=== PATIENT | female | born 1945 | race Caucasian/White ===

== ENCOUNTER → 2020-11-30 | Outpatient (CLI) | payer MEDICARE ==
[2020-11-30 10:07] LABS: HCT 43.3 % (34.0-46.0); MCH 31.8 pg (25.0-35.0); MCHC 32.4 g/dL (31.0-37.0); MCV 98.2 fL (80.0-100.0); Mean Platelet Volume 7.2; Platelet Count 372 k/uL (150-450); RBC 4.42 m/uL (3.80-5.40); RDW 13.8 % (11.5-15.5); WBC 8.1 k/uL (3.8-10.6)
[2020-11-30 10:17] LABS: African American GFR (CKD) >90 (>60 ml/min/1.73 sqM); Anion Gap 6 mmol/L; Blood Urea Nitrogen 23 mg/dL (7-17); Carbon Dioxide 27 mmol/L (22-30); Chloride 106 mmol/L (98-107); Non-African American GFR(CKD) >90 (>60 ml/min/1.73 sqM); Potassium 4.6 mmol/L (3.5-5.1); Sodium 139 mmol/L (137-145)
== END | disposition home or self-care (01) ==
LOC: LABPAT 09:10
PROVIDERS: ATTEND Internal Medicine Interventional Cardiology
DX: Z01.812 Encounter for preprocedural laboratory examination (principal); R94.39 Abnormal result of other cardiovascular function study
CPT/HCPCS: 36415; 80051; 82565; 84520; 85027

== ENCOUNTER 2020-12-13 09:15 | Day surgery (SDC) | payer MEDICARE, OTHER ==
[2020-12-12 09:08] VITALS: BMI 36.9
[~2020-12-13 09:15] MED LIST: ALPRAZolam 0.25 MG TAB PO PRN; ALPRAZolam 0.5 MG TAB PO PRN; ASPIRIN 325 MG TAB PO ONE; ATORVASTATIN 80 MG TAB PO ONE; HEPARIN SODIUM,PORCINE 10,000 UNIT in SODIUM CHLORIDE 0.9% 1,000 ML IRRIGATION PRN; HEPARIN SODIUM,PORCINE 2,500 UNIT in SODIUM CHLORIDE 0.9% 250 ML IRRIGATION PRN; NITROGLYCERIN SL TABS 0.4 MG TAB SUBLINGUAL PRN; SODIUM CHLORIDE 0.9% 1,000 ML in EMPTY BAG 1 BAG IV SCH
[2020-12-13 10:12] VITALS: TEMP 98.1
[2020-12-13] MEDS ORDERED: VERAPAMIL 2.5 MG/ML 2 ML AMP ONE (10:43)
[2020-12-13] MEDS: MIDAZOLAM 2 MG/2 ML VIAL IV ONE ×2 (11:00→11:05)
[2020-12-13] MEDS ORDERED: LIDOCAINE 1% INJ 10MG/ML (20 ML MDV) SQ ONE (11:06)
[2020-12-13] MEDS ORDERED: HEPARIN SODIUM 1,000 UN/ML (10ML VL) ONE (11:08)
[2020-12-13] MEDS: VERAPAMIL SYRINGE (5 MG/10 ML) INTRAARTER ONE ×2 (11:26→11:31)
[2020-12-13] MEDS ORDERED: NITROGLYCERIN 1000MCG/10ML SYRINGE INTRAARTER ONE (11:31)
[2020-12-13 11:33] LABS: O2 Sat Blood Gas 71.3 %
[2020-12-13 11:36] LABS: O2 Sat Blood Gas 70.5 %
[2020-12-13 11:39] LABS: O2 Sat Blood Gas 79.9 %
[2020-12-13] MEDS ORDERED: IOPAMIDOL-370 100ML BTL INJ ONE (11:39)
[2020-12-13 11:41] LABS: O2 Sat Blood Gas 95.9 %
[2020-12-13] MEDS ORDERED: SODIUM CHLORIDE 0.9% 1,000 ML IV SCH (12:02)
[2020-12-13 12:11] VITALS: RESP 14
--- NOTE | 2020-12-13 12:39 | CC ---
CARDIAC CATHETERIZATION REPORT DATE OF SERVICE: 12/13/2020. PROCEDURE: Right and left heart catheterization and coronary angiography. PERFORMED BY: Dr. Roxy Hayward. Moderate conscious sedation time was 35 minutes. Patient was administered Versed. Oxygen saturation, hemodynamics and EKG were monitored closely. CLINICAL INFORMATION: Mrs. Jocelyn Hurtado is a 75-year-old lady with a history of COVID pneumonia with mild pulmonary fibrosis, from which she has recovered. She has history of noncritical carotid disease bilaterally, and because of shortness of breath a stress test was performed which revealed anterior wall reversible defect. She was advised cardiac cath after due discussion regarding risks, benefits and options. PROCEDURE NOTE: Under local anesthesia and strict aseptic precautions, a 6-Malaysian introducer was placed in the right radial artery. There was a basilic vein access already obtained with a venous cannula. I used a micropuncture wire and advanced it and placed a 6-Malaysian introducer in the right basilic vein. Right heart catheterization was performed with a 6-Malaysian catheter. Thermodilution and Jarret cardiac outputs were obtained. Saturations were obtained. Subsequently, coronary angiography was performed with a JL3.5 and JR4 catheters. The same right catheter was used to check LV pressures, but LV gram was not performed. Complete right and left heart catheterization was performed and coronary angiography was performed. The sheath was taken out and TR band applied with saturation in the fingers of the right hand of 95%. The basilic 6-Malaysian sheath was also taken out and hemostasis secured by manual compression. The patient tolerated procedure well without complications. CARDIAC CATHETERIZATION FINDINGS: The right atrial pressure was 6 mmHg, right ventricular pressure was 30/6, pulmonary artery pressure was 30/10 with a mean of 20, and pulmonary capillary wedge pressure was 9 mmHg. The left ventricular end-diastolic pressure was 8 mmHg. The pullback gradient across the aortic valve was 10 mmHg. CORONARY ANGIOGRAPHY FINDINGS: RIGHT CORONARY ARTERY: Small nondominant vessel. No significant disease. LEFT MAIN CORONARY ARTERY: Short, patent, disease-free vessel that trifurcates into LAD, ramus intermedius and dominant circumflex. Left main is free of significant disease. LEFT ANTERIOR DESCENDING CORONARY ARTERY: Good-caliber vessel extends along the anterior wall, gives off septal and diagonal branches. In the mid portion there is a large, very tortuous diagonal that runs laterally and then LAD continues all the way to the apex, curves over the apex to supply the inferoapical portion of left ventricle. The entire LAD has only very minor irregularities in the distal one third. Diagonal is free of significant disease and the entire LAD system has no significant disease. RAMUS INTERMEDIUS: This is a small-caliber vessel that comes off from the left main, supplies a limited amount of myocardium, runs laterally and is very tortuous. No significant disease. LEFT POSTERIOR CIRCUMFLEX CORONARY ARTERY: Dominant vessel, gives off a large obtuse marginal branch proximally and several secondary branches that come off from it and distally bifurcates into a PDA and PLV, both of which supply a sizable amount of myocardium. The PDA comes off from the distal circumflex and the obtuse marginal seems to supply the PLV distribution. No significant disease in the dominant circumflex. Left ventriculogram was not performed. FINAL IMPRESSION: This patient has normal filling pressures, mild aortic stenosis with a gradient on pullback of 10 mmHg. Filling pressures are normal. There is no pulmonary hypertension. The thermodilution cardiac output was 6.08 L and Jarret cardiac output was 5.95 L. The pulmonary arterial saturation was 71% and the arterial saturation was 96%. There is no pulmonary hypertension. RECOMMENDATIONS: Findings were discussed with the patient. No family is available. She can be discharged later on today. There is no contraindication for her proposed orthopedic surgery to be performed by Dr. Med Ricks. The patient can go ahead with the surgery. I will see her in the office on December 17. MMKLEVER / KELECHIN: [id number] /
[2020-12-13] MEDS ORDERED: ACETAMINOPHEN TAB 500 MG TAB PO ONE (12:43)
[2020-12-13 15:19] VITALS: BP 115/56
[2020-12-13 16:14] VITALS: PULSE 64
== END 2020-12-13 16:29 | disposition home or self-care (01) ==
LOC: CATHCVL 09:15
PROVIDERS: ATTEND Internal Medicine Interventional Cardiology
DX: I35.0 Nonrheumatic aortic (valve) stenosis (principal); J84.10 Pulmonary fibrosis, unspecified; Z86.16 Personal history of COVID-19; F17.210 Nicotine dependence, cigarettes, uncomplicated; Z82.49 Family history of ischemic heart disease and other diseases of the circulatory system
CPT/HCPCS: 93460; 85018; 82810; 87635; C1894; C1751; J2250; J2001; J1644; Q9967

== ENCOUNTER 2022-07-15 06:21 | Day surgery (SDC) | payer MEDICARE, OTHER ==
[2022-07-11 12:08] VITALS: BMI 31.9
[~2022-07-15 06:21] MED LIST changes: -ALPRAZolam 0.25 MG TAB PO PRN; -ALPRAZolam 0.5 MG TAB PO PRN; -ASPIRIN 325 MG TAB PO ONE; -ATORVASTATIN 80 MG TAB PO ONE; -HEPARIN SODIUM,PORCINE 10,000 UNIT in SODIUM CHLORIDE 0.9% 1,000 ML IRRIGATION PRN; -HEPARIN SODIUM,PORCINE 2,500 UNIT in SODIUM CHLORIDE 0.9% 250 ML IRRIGATION PRN; +LACTATED RINGERS 1,000 ML IV SCH; -NITROGLYCERIN SL TABS 0.4 MG TAB SUBLINGUAL PRN; -SODIUM CHLORIDE 0.9% 1,000 ML in EMPTY BAG 1 BAG IV SCH
[2022-07-15] MEDS ORDERED: LIDOCAINE 1% (10MG/ML) FOR IV START INTRADERMA ONE (07:10)
[2022-07-15 07:11] VITALS: TEMP 97.7
[2022-07-15] MEDS ORDERED: LIDOCAINE 2% INJ 20 MG/ML (2 ML VIAL) ONE (07:23)
[2022-07-15] MEDS ORDERED: PROPOFOL 10 MG/ML 20 ML VIAL IV ONE (07:23)
--- NOTE | 2022-07-15 07:50 | P.PCN ---
Date of Procedure: 07/15/22 Procedure(s) Performed: Brief history: Patient is a pleasant 77-year-old white female scheduled for an elective upper endoscopy as well as colonoscopy as a part of evaluation of abdominal pain, chronic diarrhea and progressive weight loss of 50 pounds in the last 1 year duration. She is been having bowel movements anywhere from 4-5 a day which are loose to watery in consistency. Denies any blood in the mucus in the stool Procedure performed: Esophagogastroduodenoscopy with biopsy Colonoscopy with biopsy Preoperative diagnosis: Abdominal pain, progressive weight loss, chronic diarrhea of 1 year duration Anesthesia: MAC Procedure: After informed consent was obtained from the patient was brought into the endoscopy unit and IV sedation was administered by anesthesia under continuous monitoring. Initially upper endoscopy was done. The Olympus GF 160 video endoscope was inserted inserted into the mouth and esophagus intubated without any difficulty and was gradually advanced into the stomach and duodenum and carefully examined. The bulb and second part of the duodenum appeared normal. Multiple biopsies were done from the duodenum to rule out celiac disease. The scope was then withdrawn into the stomach adequately insufflated with air and upon careful examination the antrum had scattered erosions and biopsies were done from this area. Mucosa of the body, cardia and fundus appeared normal. The scope was then withdrawn into the esophagus. The GE junction was located at 40 cm to the incisors. It appeared regular with no erythema erosions or ulcerations. Rest of the esophagus appeared normal. Patient tolerated the procedure well. At this time the patient continued to remain sedation. Initial digital rectal examination was normal. Olympus CF 160 video colonoscope was then inserted into the rectum and gradually advanced to the cecum without any difficulty. Careful examination was performed as the scope was gradually being withdrawn. The prep was excellent. The cecum, ascending colon, transverse colon, descending colon, sigmoid colon and rectum appeared normal. Biopsies were done from ascending and descending colon to rule out microscope/collagenous colitis. Scattered sigmoid diverticulosis. Retroflexion was performed in the rectum and no lesions were n oted. Patient tolerated the procedure well. Impression: 1. Upper endoscopy revealed small hiatal hernia and mild antral gastritis 2. Colonoscopy was within normal limits with no evidence of colorectal neoplasia Recommendations: Findings of this examination were discussed with the patient as well as her family. He was advised to follow with the biopsy results. She'll be seen in office in 2 weeks.
[2022-07-15] MEDS ORDERED: IV FLUID CONTINUATION 1,000 ML IV ONE (07:54)
[2022-07-15 08:10] VITALS: BP 105/60; PULSE 58; RESP 18
== END 2022-07-15 08:34 | disposition home or self-care (01) ==
LOC: ORWHC2ENDO 06:21
PROVIDERS: ATTEND Internal Medicine Gastroenterology
DX: K63.5 Polyp of colon (principal); K52.9 Noninfective gastroenteritis and colitis, unspecified; K57.30 Diverticulosis of large intestine without perforation or abscess without bleeding; K29.50 Unspecified chronic gastritis without bleeding; K44.9 Diaphragmatic hernia without obstruction or gangrene; J44.9 Chronic obstructive pulmonary disease, unspecified; M06.9 Rheumatoid arthritis, unspecified; M19.90 Unspecified osteoarthritis, unspecified site; K21.9 Gastro-esophageal reflux disease without esophagitis; Z79.51 Long term (current) use of inhaled steroids; Z79.899 Other long term (current) drug therapy; Z88.5 Allergy status to narcotic agent; Z88.6 Allergy status to analgesic agent
CPT/HCPCS: 88305; 45380; 43239; J2704; J2001

== ENCOUNTER → 2023-01-08 | Outpatient (CLI) | payer MEDICARE ==
[2023-01-08 17:29] LABS: African American GFR (CKD) >90 (>60 ml/min/1.73 sqM); Blood Urea Nitrogen 22 mg/dL (7-17); Non-African American GFR(CKD) 89 (>60 ml/min/1.73 sqM)
--- NOTE | 2023-01-08 18:39 | CT ---
EXAMINATION TYPE: CT abdomen pelvis w con CT DLP: 1561.10 mGycm, Automated exposure control for dose reduction was used. DATE OF EXAM: 01/08/2023 6:28 PM COMPARISON: None. CLINICAL INDICATION:Female, 77 years old with history of R10.32 LLQ PAIN; lower abdominal pain x1 yea r TECHNIQUE: Axial CT of the ;CT abdomen pelvis w con;Sagittal and coronal reformats were created on a separate workstation. Contrast used:100 mL of Isovue 300 with IV Contrast, (none if empty) Oral contrast used: with Oral Contrast (none if empty) FINDINGS: LOWER CHEST: Loosely consultations and coronary artery cusp patient's. ABDOMEN LIVER: Unremarkable GALLBLADDER AND BILE DUCTS: Gallbladder is surgically absent with mild intrahepatic and extra hepatic biliary dilatation likely physiologic and a postcholecystectomy change. No evidence of choledocholit hiasis. PANCREAS: Unremarkable. SPLEEN: Unremarkable. ADRENAL GLANDS: Unremarkable. KIDNEYS AND URETERS: Mild left hydronephrosis secondary 3 mm ureteropelvic junction calculus. Right s imple appearing renal cysts. Left ureteropelvic junction calculus measuring PELVIS BLADDER: Unremarkable REPRODUCTIVE: The uterus is surgically absent. ABDOMEN & PELVIS STOMACH AND BOWEL: No evidence of bowel obstruction. Scattered colonic diverticulosis. Large amount s tool in the right colon. Appendix is normal. PERITONEUM/RETROPERITONEUM: No evidence of pneumoperitoneum or free fluid. VASCULATURE: No evidence of aortic aneurysm. MUSCULOSKELETAL: Severe degeneration changes of the spine with complete height loss of the L1 vertebr al body and 25% height loss of the L3 vertebral body LYMPH NODES: No gross evidence for lymphadenopathy. SOFT TISSUE/ABDOMINAL WALL: Unremarkable IMPRESSION: Mild left hydronephrosis secondary 3 mm ureteropelvic junction calculus. Severe degeneration changes of the spine with complete height loss of the L1 vertebral body secondary to compression fracture and 25% height loss of the L3 vertebral body. No evidence for significant sp inal canal or neural foraminal stenosis.
== END | disposition home or self-care (01) ==
LOC: RADCTMAIN 16:18
PROVIDERS: ATTEND Family Medicine
DX: N13.2 Hydronephrosis with renal and ureteral calculous obstruction (principal); M51.36 Other intervertebral disc degeneration, lumbar region; Z90.49 Acquired absence of other specified parts of digestive tract
CPT/HCPCS: 82565; 84520; 74177; 36415; Q9967

== ENCOUNTER → 2023-09-18 | Outpatient (CLI) | payer MEDICARE ==
[2023-09-18 11:08] LABS: Partial Thromboplastin Time 25.6 sec (22.0-30.0); Prothrombin Time 10.6 sec (10.0-12.5)
--- NOTE | 2023-09-18 12:15 | XR ---
EXAMINATION TYPE: XR chest 2V DATE OF EXAM: 09/18/2023 COMPARISON: 12/11/2022 HISTORY: 78-year-old female presurgical testing TECHNIQUE: Frontal and lateral views FINDINGS: Heart normal size. Aorta and pulmonary vasculature within normal limits. Mild central peribronchial c uffing is noted. Some strandy atelectasis at the lung bases. Mild hyperinflation. IMPRESSION: Possible underlying COPD. Clinically correlate. Peribronchial cuffing could reflect bronchitis or ast hma. Some strandy bibasilar atelectasis.
[2023-09-18 15:40] LABS: Appearance,Urine Cloudy (Clear); Bilirubin,Urine Negative (Negative); Blood,Urine Negative (Negative); Color,Urine Yellow (Yellow); Ketones,Urine Negative (Negative); Nitrite,Urine Negative (Negative); PH, Urine 5.5; Specific Gravity,Urine 1.027 (1.001-1.030); Urobilinogen,Urine 0.2 E.U./DL
[2023-09-18 15:47] LABS: Blood Urea Nitrogen 29.1 mg/dL (9.0-27.0); Calcium 8.9 mg/dL (8.7-10.3); Carbon Dioxide 17.7 mmol/L (21.6-31.8); Chloride 118 mmol/L (96-109); Glucose 98 mg/dL (70-110); Sodium 148 mmol/L (135-145)
[2023-09-18 15:53] LABS: Bacteria,Urine None Seen (None Seen); Calcium Oxalate Crystals,Urine Present (None Seen)
[2023-09-18 16:38] LABS: Basophils # (A) 0.02 X 10*3/uL (0.00-0.10); Basophils % (A) 0.2 %; Eosinophils # (A) 0.05 X 10*3/uL (0.04-0.35); Eosinophils % (A) 0.6 %; HCT 41.8 % (37.2-46.3); HGB 13.4 g/dL (12.0-15.0); Lymphocytes # (A) 1.38 X 10*3/uL (0.90-5.00); Lymphocytes % (A) 16.9 %; MCH 31.7 pg (27.0-32.0); MCHC 32.1 g/dL (32.0-37.0); MCV 98.8 FL (80.0-97.0); Mean Platelet Volume 10.2 FL (9.5-12.2); Monocytes # (A) 0.54 X 10*3/uL (0.20-1.00); Monocytes % (A) 6.6 %; NRBC Per 100 WBC 0 X 10*3/uL (0.00-0.01); Neutrophils # (A) 6.15 X 10*3/uL (1.80-7.70); Neutrophils % (A) 75.2 %; Platelet Count 289 X 10*3/uL (140-440); RBC 4.23 X 10*6/uL (4.10-5.20); WBC 8.18 X 10*3/uL (4.50-10.00)
== END | disposition home or self-care (01) ==
LOC: LABPAT 10:23
PROVIDERS: ATTEND Orthopaedic Surgery Orthopaedic Surgery of the Spine
DX: Z01.818 Encounter for other preprocedural examination (principal); S32.02 Fracture of second lumbar vertebra; I45.4 Nonspecific intraventricular block; R94.31 Abnormal electrocardiogram [ECG] [EKG]; R00.1 Bradycardia, unspecified; X58.XXXA Exposure to other specified factors, initial encounter; Z22.322 Carrier or suspected carrier of Methicillin resistant Staphylococcus aureus
CPT/HCPCS: 71046; 80048; 81001; 85025; 85610; 85730; 86850; 86900; 86901; 87070; 93005

== ENCOUNTER 2023-09-28 05:46 | Day surgery (SDC) | payer MEDICARE ==
[2023-09-22 11:03] VITALS: BMI 29.9
[~2023-09-28 05:46] MED LIST changes: -LACTATED RINGERS 1,000 ML IV SCH; +ceFAZolin 1,000 MG in SODIUM CHLORIDE 0.9% IRRIGATIO 1,000 ML IRRIGATION PRN
[2023-09-28] MEDS ORDERED: LACTATED RINGERS 1,000 ML IV SCH (06:34)
[2023-09-28] MEDS ORDERED: LIDOCAINE 1% (10MG/ML) FOR IV START INTRADERMA PRN (06:34)
[2023-09-28] MEDS: IV FLUID CONTINUATION 1,000 ML IV ONE (06:45)
[2023-09-28] MEDS ORDERED: HYDROmorphone 0.5 MG/0.5 ML SYRINGE IVP PRN ×2 (07:00→08:38)
[2023-09-28] MEDS: LACTATED RINGERS 1,000 ML IV SCH (07:02)
[2023-09-28] MEDS: ONDANSETRON 4 MG/2 ML VIAL IVP ONE (07:03)
[2023-09-28 07:06] VITALS: TEMP 97
[2023-09-28] MEDS ORDERED: fentaNYL (PF) 50 MCG/ML 2 ML AMP ONE (07:30)
[2023-09-28] MEDS ORDERED: PROPOFOL 10 MG/ML 20 ML VIAL IV ONE (07:30)
[2023-09-28] MEDS ORDERED: SUCCINYLCHOLINE CHLORIDE 200 MG/10 ML VIAL IV ONE (07:30)
[2023-09-28] MEDS ORDERED: PHENYLEPHRINE 10 MG/ML VIAL ONE (07:30)
[2023-09-28] MEDS: LIDOCAINE 2%-EPI 1:100,000 20 ML VIAL SQ ONE ×2 (07:56→08:05)
[2023-09-28] MEDS ORDERED: ACETAMINOPHEN TAB 500 MG TAB PO PRN (08:38)
[2023-09-28] MEDS ORDERED: IBUPROFEN 600 MG TAB PO PRN (08:38)
[2023-09-28] MEDS ORDERED: BENZOCAINE/MENTHOL LOZENG 1 EACH LOZENGE MUCOUS MEM PRN (08:38)
[2023-09-28] MEDS ORDERED: traMADol 50 MG TAB PO PRN (08:38)
[2023-09-28] MEDS ORDERED: KETOROLAC 15 MG/ML 1 ML VIAL IVP PRN (08:38)
[2023-09-28] MEDS ORDERED: TRIAMCINOLONE 0.1% CREAM 80 GM TUBE TOPICAL PRN (08:42)
[2023-09-28] MEDS ORDERED: [UNRECOGNIZED DRUG - OTHER] INHALATION PRN (08:42)
[2023-09-28] MEDS ORDERED: NON FORMULARY DRUG (Acetaminophen [Tylenol Arthritis] 650 MG Tablet) PO PRN (08:42)
[2023-09-28] MEDS ORDERED: NON FORMULARY DRUG (Albuterol Inhaler 90 MCG Puff) INHALATION PRN (08:42)
[2023-09-28] MEDS ORDERED: SODIUM CHLORIDE 0.9% 1,000 ML IV SCH (08:45)
--- NOTE | 2023-09-28 08:47 | P.OP ---
Date of Procedure: 09/28/23 Preoperative Diagnosis: L2 subacute compression fracture, low back pain due to fracture, failed conservative treatment, multiple chronic compression fractures Postoperative Diagnosis: Same Anesthesia: GETA Pathology: other (L2 vertebral body biopsy sent to pathology) Condition: stable Disposition: PACU Description of Procedure: BRIEF OPERATIVE NOTE Preoperative Diagnosis: L2 subacute compression fracture, low back pain due to fracture, failed conservative treatment, multiple chronic compression fractures Postoperative Diagnosis: Same Procedure: Kyphoplasty of L2 Vertebral body biopsy of L2 Use of biplanar fluoroscopic guidance Surgeon: Dr. Rodriguez Travel Registered Nurse Oncology: mental health assistant Anesthesia: General anesthesia per Dr. Roberts Estimated blood loss: Less than 10 mL Specimen: Vertebral body biopsy of L2 sent to pathology in formalin Complications: None apparent Components implanted: Bone cement approximately 9 cc Disposition: To recovery room in good stable condition. OPERATIVE INDICATIONS The patient has been having issues in their back ever since sustaining an injury. She was having persistent low back pain which was becoming incapacitating for her. The patient has been through conservative treatment. They attempted conservative care with bracing however they're not having any benefit despite brace use. She was found to have a new L2 compression fracture which correlated well with her low back pain symptoms. She had prior chronic fracture at L1 and L3 but this was seen on MRI as new fracture with new signal at L2. We felt that the majority of her symptoms were stemming from the new fracture at L2. They continue to have significant pain and debility due to their new fracture. We discussed various treatment options including surgery, and the patient wishes to proceed with surgery We discussed the risk, patient's alternatives and benefits of surgery including but not limited to, risk of bleeding risk of infection, risk of need for further surgery, risk of decreased, loss of motion, loss of function, cement extravasation, nerve damage, paralysis, heart attack, blindness and . OPERATIVE SUMMARY After discussing all the risks, patient alternatives and benefits at length, the patient elected to proceed with surgical intervention, signed informed consent, and presented for their procedure. The patient was seen and examined in the preoperative holding area and the surgical site was marked. The patient was given antibiotics and brought to the operating room. The patient was sedated and intubated by anesthesia in standard fashion. The patient was positioned on to the operating room table in a prone position on the appropriate well-padded and well molded bilateral chest rolls. We were careful to pad any bony prominences and pressure points. We were careful to maintain the patient's cervical spine and good neutral alignment and position throughout. We used 2 C-arm machines to establish biplanar fluoroscopic guidance in AP and lateral positions. We were able to localize the fractures appropriately. The patient was prepped and draped in a normal standard fashion. An appropriate timeout and keystone protocol performed. We were able to proceed with the surgery. The local wound area was infiltrated with local anesthetic over the pedicles at L2 bilaterally. An incision was made over the lateral aspect of the pedicle over the appropriate levels with a small 2 mm stab incision at L2 on the right. Intraoperative fluoroscopy was taken which showed a marker at the appropriate level at L2. With the appropriate level positively confirmed, I was able to position a sharp trocar over the lateral aspect of the pedicle. As able to advance the trocar into the pedicle and into the posterior aspect of vertebral body being careful to avoid penetration cephalad caudad or medially. The trocar was placed appropriately into the posterior aspect of vertebral body at the appropriate levels of L2. This was confirmed with C-arm guidance. With the trocar intact I was then able to take a bone biopsy with a biopsy punch or a bony drill. The biopsy specimen was passed off to be sent to pathology in formalin. I was then able to place the kyphoplasty balloon within the vertebral body. The position was checked on C-arm. I was able to inflate the balloon under low pressure and visualization with C-arm. The balloon was well enclosed within the vertebral body. The cement was prepared. With the cement at appropriate working condition the balloons were deflated and removed. I was able to place bony cement with trocar with the cement delivery device under low pressure. It had good fill within the vertebral body. It had good spread throughout the vertebral body bilaterally. There is no evidence of any extravasation of the cement posteriorly toward the canal. The cement was well contained at the appropriate levels of L2. The cement was allowed to cure appropriately. The trochars removed and final images were taken on C-arm. This showed the cement at the appropriate levels. We were able to proceed with closure. The wound was cleaned and dried and dressed with the appropriate dressing. The drapes were broken down. The patient was gently rolled back onto their hospital bed being careful to maintain their cervical spine and good neutral alignment and position. They were woken up by anesthesia, extubated, and brought to the recovery room in good stable condition. The patient will be admitted to the hospital for observation and for appropriate postoperative care, medical management and monitoring. We will continue to follow them closely about the postoperative course.
[2023-09-28] MEDS ORDERED: metHOTREXate sodium 2.5 MG TAB PO SCH (09:00)
[2023-09-28] MEDS ORDERED: SODIUM CHLORIDE 5% OPHTH DROPS 15 ML BTL BOTH EYES SCH (09:00)
[2023-09-28] MEDS ORDERED: K2 PO SCH (09:00)
[2023-09-28] MEDS ORDERED: VITAMIN D3 PO SCH (09:00)
[2023-09-28] MEDS ORDERED: TURMERIC PO SCH (09:00)
[2023-09-28] MEDS ORDERED: NON FORMULARY DRUG (Lutein [Lutein] 10 MG Tablet) PO SCH (09:00)
[2023-09-28] MEDS: ONDANSETRON 4 MG/2 ML VIAL IVP PRN (09:10)
[2023-09-28] MEDS: HYDROcodone/APAP 5-325MG 1 EACH TAB PO PRN (09:34)
[2023-09-28 09:36] VITALS: PULSE 79; RESP 16
--- NOTE | 2023-09-28 09:42 | XR ---
Fluoroscopy INDICATION: Pain FINDINGS: Fluoroscopy time: 36 seconds. Total dose area product (DAP) in uGy*m?, mGy*cm? (or similar): 15.7568 Images obtained: 6. IMPRESSION: 1. Documentation of fluoroscopy.
[2023-09-28 09:50] VITALS: BP 111/71
--- NOTE | 2023-09-28 09:57 | FL ---
Fluoroscopy INDICATION: Pain FINDINGS: Fluoroscopy time: Not recorded seconds. Total dose area product (DAP) in uGy*m?, mGy*cm? (or similar): Not recorded Images obtained: 0. IMPRESSION: 1. Documentation of fluoroscopy.
[2023-09-28] MEDS ORDERED: LATANOPROST 0.005% OPHTH DROPS 2.5 ML BTL BOTH EYES SCH (21:00)
[2023-09-28] MEDS ORDERED: ACETAZOLAMIDE 500 MG PO SCH (21:00)
== END 2023-09-28 10:16 | disposition home or self-care (01) ==
LOC: OR 05:46
PROVIDERS: ATTEND Orthopaedic Surgery Orthopaedic Surgery of the Spine
DX: M80.08XA Age-related osteoporosis with current pathological fracture, vertebra(e), initial encounter for fracture (principal); M51.36 Other intervertebral disc degeneration, lumbar region; M47.816 Spondylosis without myelopathy or radiculopathy, lumbar region; M79.10 Myalgia, unspecified site; K21.9 Gastro-esophageal reflux disease without esophagitis; M06.9 Rheumatoid arthritis, unspecified; E66.9 Obesity, unspecified; Z68.32 Body mass index [BMI] 32.0-32.9, adult; L40.50 Arthropathic psoriasis, unspecified; Z88.5 Allergy status to narcotic agent; Z88.6 Allergy status to analgesic agent; Z88.7 Allergy status to serum and vaccine; Z91.09 Other allergy status, other than to drugs and biological substances; Z87.891 Personal history of nicotine dependence; Z79.899 Other long term (current) drug therapy
CPT/HCPCS: 88307; 88311; 72100; 22514; C1713; J0330; J0690; J2405; J3010; J2704; J2371

== ENCOUNTER 2023-11-19 08:52 | Emergency (ER) | payer MEDICARE ==
[2023-11-19 08:56] VITALS: RESP 18
--- NOTE | 2023-11-19 09:38 | ED ---
Fall HPI - General Chief Complaint: Fall Stated Complaint: fall L knee pain Time Seen by Provider: 11/19/23 08:59 Source: patient, RN notes reviewed Mode of arrival: wheelchair Limitations: no limitations - History of Present Illness Initial Comments: 75-year-old female presents emergency department chief complaint of left knee pain. Patient states she fell couple days ago onto her knee she states it swollen, painful she is able to ambulate but makes it difficult. Patient has tried some acetaminophen. She states that she is on no blood thinners no head injury no other injuries from her fall. She did wrap her knee which has helped some. Denies any paresthesias. - Related Data Home Medications Medication Instructions Recorded Confirmed Acetaminophen [Tylenol Arthritis] 650 mg PO Q6H PRN 12/12/20 09/22/23 Latanoprost Ophth [Xalatan 0.005%] 1 drops BOTH EYES HS 12/12/20 09/22/23 Lutein 10 mg PO DAILY 12/12/20 09/22/23 Sodium Chloride 5% Ophth Soln 1 drops BOTH EYES BID 12/12/20 09/22/23 [Keisha 128] Triamcinolone 0.1% Cream [Kenalog 1 applicatio TOPICAL BID PRN 12/12/20 09/22/23 0.1% Cream] Vitamin D3/K2 1 tab PO DAILY 12/12/20 09/22/23 acetaZOLAMIDE [acetaZOLAMIDE ER] 500 mg PO HS 12/12/20 09/22/23 metHOTREXate sodium [Methotrexate] 7 tab PO Q7DAYS 07/11/22 09/22/23 Albuterol Inhaler [Ventolin Hfa 2 puff INHALATION Q4H PRN 09/22/23 09/22/23 Inhaler] Fluticasone/Vilanterol [Breo 1 puff INHALATION DAILY PRN 09/22/23 09/22/23 Ellipta 100-25 Mcg Inhalr] Turmeric (Unknown Dose) 1 tab PO DAILY 09/22/23 09/22/23 Previous Rx's Medication Instructions Recorded Ketorolac [Toradol] 10 mg PO Q8HR #15 tab 11/19/23 Allergies Allergy/AdvReac Type Severity Reaction Status Date / Time codeine Allergy headache Verified 09/22/23 10:35 ibuprofen AdvReac stomache Verified 09/22/23 10:35 upset METAL Allergy Rash/Hives Uncoded 09/22/23 10:35 Review of Systems ROS Statement: Those systems with pertinent positive or pertinent negative responses have been documented in the HPI. ROS Other: All systems not noted in ROS Statement are negative. Past Medical History Past Medical History: COPD, Eye Disorder, GERD/Reflux, Osteoarthritis (OA), Rheumatoid Arthritis (RA) Additional Past Medical History / Comment(s): OSTEOPOROSIS, POSTERIOR POLYMORPHYSIS DISTROPHY PREETI EYES, glaucoma, had Covid in 2019-caused multiple issues w/eyes, SOB w/exertion, leaky heart valve per pt. History of Any Multi-Drug Resistant Organisms: None Reported Past Surgical History: Cholecystectomy, Heart Catheterization, Orthopedic Surgery, Tonsillectomy Additional Past Surgical History / Comment(s): HEMMORHOIDECTOMY, D&C, l WRIST & R ANKLE SURGERY, PREETI FOOT SURGERY, cataracts removed Past Anesthesia/Blood Transfusion Reactions: No Reported Reaction Past Psychological History: No Psychological Hx Reported Past Alcohol Use History: Occasional Additional Past Alcohol Use History / Comment(s): smoked in high school, for 1-2 yrs. - Past Family History Father Family Medical History: Cancer General Exam Limitations: no limitations General appearance: alert, in no apparent distress Head exam: Present: atraumatic, normocephalic, normal inspection Neck exam: Present: normal inspection, full ROM. Absent: tenderness, meningismus, lymphadenopathy Respiratory exam: Present: normal lung sounds bilaterally. Absent: respiratory distress, wheezes, rales, rhonchi, stridor Cardiovascular Exam: Present: regular rate, normal rhythm, normal heart sounds. Absent: systolic murmur, diastolic murmur, rubs, gallop, clicks Extremities exam: Present: other (Left knee there is notable swelling, diffuse tenderness there is small abrasion noted neurovascular intact there is no tenderness above or below the left knee patient has pain with range of motion, joint effusion noted) Course Vital Signs 11/19/23 11/19/23 08:52 11:34 Temperature 97.6 F 98.1 F Pulse Rate 80 67 Respiratory 18 18 Rate Blood Pressure 122/82 113/62 O2 Sat by Pulse 96 97 Oximetry Medical Decision Making - Medical Decision Making Was pt. sent in by a medical professional or institution (, PA, DIRECTOR RECREATION, urgent care, hospital, or senior living...) When possible be specific @ -No Did you speak to anyone other than the patient for history (EMS, parent, family, police, friend...)? What history was obtained from this source @ -No Did you review nursing and triage notes (agree or disagree)? Why? @ -I reviewed and agree with nursing and triage notes Were old charts reviewed (outside hosp., previous admission, EMS record, old EKG, old radiological studies, urgent care reports/EKG's, senior living records)? Report findings @ -No old charts were reviewed Differential Diagnosis (chest pain, altered mental status, abdominal pain women, abdominal pain men, vaginal bleeding, weakness, fever, dyspnea, syncope, headache, dizziness, GI bleed, back pain, seizure, CVA, palpatations, mental health, musculoskeletal)? @ -Knee effusion, patella fracture, leg fracture, leg strain EKG interpreted by me (3pts min.). @ -None X-rays interpreted by me (1pt min.). @ -X-ray left knee shows no acute fracture patient does have mild joint swelling soft tissue swelling CT interpreted by me (1pt min.). @ -None done U/S interpreted by me (1pt. min.). @ -None done What testing was considered but not performed or refused? (CT, X-rays, U/S, labs)? Why? @ -None What meds were considered but not given or refused? Why? @ -None Did you discuss the management of the patient with other professionals (professionals i.e. , PA, DIRECTOR RECREATION, lab, RT, psych nurse, geriatric social worker, roller pneumatic, teacher, forest fire officer, showcase trimmer)? Give summary @ -No Was smoking cessation discussed for >3mins.? @ -No Was critical care preformed (if so, how long)? @ -No Were there social determinants of health that impacted care today? How? (Homelessness, low income, unemployed, alcoholism, drug addiction, transportation, low edu. Level, literacy, decrease access to med. care, detention, rehab)? @ -No Was there de-escalation of care discussed even if they declined (Discuss DNR or withdrawal of care, Hospice)? DNR status @ -No What co-morbidities impacted this encounter? (DM, HTN, Smoking, COPD, CAD, Cancer, CVA, ARF, Chemo, Hep., AIDS, mental health diagnosis, sleep apnea, morbid obesity)? @ -None Was patient admitted / discharged? Hospital course, mention meds given and route, prescriptions, significant lab abnormalities, going to OR and other pertinent info. @ -Patient was wrapped, patient states that Toradol did help her symptoms. Patient will be discharged in stable condition return transfer discussed. Undiagnosed new problem with uncertain prognosis? @ -No Drug Therapy requiring intensive monitoring for toxicity (Heparin, Nitro, Insulin, Cardizem)? @ -No Were any procedures done? @ -No Diagnosis/symptom? @ -Fall, knee contusion, knee effusion Acute, or Chronic, or Acute on Chronic? @ -Acute Uncomplicated (without systemic symptoms) or Complicated (systemic symptoms)? @ -Uncomplicated Side effects of treatment? @ -No Exacerbation, Progression, or Severe Exacerbation? @ -No Poses a threat to life or bodily function? How? (Chest pain, [place], [place], pneumonia, PE, COPD, DKA, ARF, appy, cholecystitis, CVA, Diverticulitis, Homicidal, Suicidal, threat to staff... and all critical care pts) @ -No Disposition Clinical Impression: Fall, Effusion, left knee Disposition: HOME SELF-CARE Condition: Stable Instructions (If sedation given, give patient instructions): Swollen Knee Joint (ED) Additional Instructions: Please return to the Emergency Department if symptoms worsen or any other concerns. Prescriptions: Ketorolac [Toradol] 10 mg PO Q8HR #15 tab Is patient prescribed a controlled substance at d/c from ED?: No Referrals: Yrn Casey MD [Primary Care Provider] - 1-2 days Brett Stark MD [STAFF PHYSICIAN] - 1-2 days Time of Disposition: 11:21
[2023-11-19] MEDS: KETOROLAC 15 MG/ML 1 ML VIAL IM STA (09:40)
--- NOTE | 2023-11-19 11:09 | XR ---
Left knee. HISTORY: Knee pain following fall. COMPARISON: None TECHNIQUE: 3 views of left knee were obtained. FINDINGS: There is no fracture, dislocation, intraosseous, intra-articular or soft tissue abnormality. IMPRESSION: No significant abnormality seen. No evidence of acute trauma.
[2023-11-19 11:36] VITALS: BP 113/62; PULSE 67; TEMP 98.1
== END 2023-11-19 11:36 | disposition home or self-care (01) ==
LOC: EC 08:52
CPT/HCPCS: 96372; 99283

== ENCOUNTER → 2024-03-23 | Outpatient (CLI) | payer MEDICARE ==
--- NOTE | 2024-03-23 15:25 | US ---
EXAMINATION TYPE: US kidneys/renal and bladder DATE OF EXAM: 03/23/2024 COMPARISON: CT abdomen and pelvis January 08, 2023 CLINICAL INDICATION: Female, 78 years old with history of N20.0 CALCULUS OF KIDNEY; Hx renal stones, UTIs TECHNIQUE: Grayscale imaging of the bilateral kidneys and urinary bladder: FINDINGS: EXAM MEASUREMENTS: Right Kidney: 9.6x4.8x5.8 cm Left Kidney: 11.9x5.0x4.1 cm Right Kidney: 3.5x3.8x3.5 simple thin-walled cyst redemonstrated Left Kidney: wnl, no evidence for hydronephrosis, mass or renal calculus. Bladder: poorly distended Stable 3.8 cm simple-appearing thin-walled cyst medially in the right kidney. The urinary bladder is poorly distended and suboptimally evaluated. exam limited by positioning, bowel gas and body habitus IMPRESSION: Suboptimal study without hydronephrosis or renal calculus seen bilaterally. [facility], , 03/23/2024 3:23 PM
== END | disposition home or self-care (01) ==
LOC: RADUSWWP 14:36
PROVIDERS: ATTEND Family Medicine
DX: N20.0 Calculus of kidney (principal); Z87.440 Personal history of urinary (tract) infections
CPT/HCPCS: 76770